=== PATIENT | female | born 1945 ===

== ENCOUNTER → 2019-01-15 | Outpatient (REF) | payer MEDICARE | LOC: M LAB REF 12:36 | PROVIDERS: ATTEND Ophthalmology | DX: D23.122 Other benign neoplasm of skin of left lower eyelid, including canthus (principal) ==

== ENCOUNTER → 2020-07-03 | Day surgery (SDC) | payer MEDICARE ==
[~2020-07-03] MED LIST: BALANCED SALT IRRIGATION SOLUTION 500ML BAG (FOR OR EYE MACHINE) ONE; CEFUROXIME 1MG/0.1ML INTRACAMERAL INJ ONE; CYCLOPENTOLATE 2% OPHTH SOLN 2ML BTL ONE; HEALON DUET PRO(HEALON 10MG/ML 0.55ML & HEALON ENDOCOAT 30MG/ML 0.85ML) ONE; LIDOCAINE 1% SDV 5ML VIAL ONE; LIDOCAINE 3.5 % 1ML OPHTH TOPICAL GEL ONE; MIDAZOLAM INJ 2MG/2ML VIAL (J2250 PER 1MG) ONE; OFLOXACIN 0.3 % (OCUFLOX) OPTH SOL 5ML ONE; PHENYLEPHRINE 2.5% OPHTH SOL 2ML ONE; POVIDONE-IODINE 5% OPHTH PREP SOL 30ML ONE; TROPICAMIDE 1% OPHTH SOLN 2ML ONE; fentaNYL 100 MCG/2 ML INJECTION (J3010) ONE
--- NOTE | 2020-08-31 10:43 | RO ---
DATE OF OPERATION: 07/03/2020 PREOPERATIVE DIAGNOSIS: Age-related nuclear cataract, left eye. POSTOPERATIVE DIAGNOSIS: Age-related nuclear cataract, left eye. PROCEDURE PERFORMED: Phacoemulsification posterior chamber intraocular lens implantation, left eye. ANESTHESIA: Topical sedation. LENS USED: [id number] with a 24.0 diopter. DETAILS OF PROCEDURE: The eye was prepped and draped in the usual fashion. Lid speculum was placed in the lid. A stab incision was made to the anterior chamber with a superblade. 1% non-preserved lidocaine was instilled and viscoelastic instilled. The eye was refixated, and a 2.4 mm Keratome made a clear corneal and temporal limbal incision. The lens was then hydrodissected, and then it was grooved in two meridians at the phacoemulsification. The lens was scrapped into four quadrants. Each quadrant was in good phacoemulsification. The remaining cortex was removed with I&A unit. The capsular bag was refilled with viscoelastic and the posterior chamber and intraocular lens were inserted into the capsular bag with no difficulty. Any remaining viscoelastic was removed with the I&A, and the wound was hydrated and balanced salt and ceftriaxone were instilled. The patient tolerated the procedure well, and went to the recovery room in stable condition. AMINAH
== END | disposition home or self-care (01) ==
LOC: M SDC 10:31
PROVIDERS: ATTEND Ophthalmology
DX: H25.12 Age-related nuclear cataract, left eye (principal); E78.5 Hyperlipidemia, unspecified; E03.9 Hypothyroidism, unspecified; Z88.2 Allergy status to sulfonamides; Z79.899 Other long term (current) drug therapy; K44.9 Diaphragmatic hernia without obstruction or gangrene
CPT/HCPCS: 66984; J2250; J3010; V2632